=== PATIENT | female | born 1960 | race Caucasian/White ===

== ENCOUNTER 2019-02-19 12:52 | Outpatient (CLI) | payer BC ==
--- NOTE | 2019-02-19 15:40 | MRI ---
MRI OF LUMBAR SPINE WITH AND WITHOUT CONTRAST: 02/19/19 Multiplanar and multisequential imaging of the lumbar spine obtained. Postcontrast images were obtain ed administering IV Multihance. INDICATIONS: Lumbar radiculopathy. History of prior surgery . Comparison made to an MRI lumbar spine dated November 2009. That exam revealed a disc protrusion at L 4-5. Diffuse bulge at L5-S1. FINDINGS: The lumbar vertebrae maintain normal height and alignment. Disc spaces are preserved, although degene rative signal changes are noted. At L1-2, no significant disc bulge. No central canal or foraminal stenosis. At L2-3, mild disc bulge centrally. There is an annular fissure with asymmetric protrusion laterally to the left. This does exhibit some foraminal encroachment on the left. There is facet hypertrophy. T here is mild central canal stenosis and left foraminal stenosis due to the asymmetric disc protrusion to the left and associated facet hypertrophy. There is contact and probable displacement of the exit ing left L2 nerve root. At L3-4, there is an annular fissure with central disc protrusion. There is enhancement surrounding t his protruded disc fragment. There is severe compression of the thecal centrally and anteriorly to th e left. There is facet and ligamentous hypertrophy. Left foraminal stenosis. Moderate to severe constantine tral canal stenosis. At L4-5, annular fissure with diffuse disc bulge. Prominent facet and ligamentous hypertrophy. Mild c entral canal stenosis. Bilateral foraminal narrowing more prominent on the right due to disc bulge an d facet hypertrophy. At L5-S1, minimal disc bulge. No significant central canal or foraminal stenosis. Posterior muriel ctomy changes on the left noted. IMPRESSION: 1. Disc protrusion centrally and to the left at L3-4 produces severe central canal stenosis and compression of the thecal sac as described above. 2. Annular fissure with broad based disc bulge at L4-5 as described. 3. Annular fissure with asymmetric protrusion to the left at L2-3 as described above. POS: [facility]
== END 2019-02-19 12:53 | disposition home or self-care (01) ==
LOC: TBSIIMAG 12:52
PROVIDERS: ATTEND Neurological Surgery
DX: M51.16 Intervertebral disc disorders with radiculopathy, lumbar region (principal); M48.061 Spinal stenosis, lumbar region without neurogenic claudication; Q05.7 Lumbar spina bifida without hydrocephalus
CPT/HCPCS: 72158